=== PATIENT | male | born 1970 | race Caucasian/White ===

== ENCOUNTER 2017-01-13 14:59 | Emergency (ER) | payer MEDICAID, OTHER ==
[~2017-01-13] VITALS: Ht 157.5 cm; Wt 63.0 kg
[~2017-01-13 14:59] MED LIST: HYDR-3498 PO; IBUP-1542 PO; PRED20TA PO
[2017-01-13 15:34] VITALS: Ht 157.5 cm; Wt 63.0 kg
--- NOTE | 2017-01-13 17:38 | ERA ---
ER Documentation Chief Complaint Date/Time DATE: 01/13/17 TIME: 17:38 Chief Complaint Dizziness HPI . The patient is a 46-year-old male, presenting to the ER because of intermittent dizziness for the last 2 weeks. He does not have syncope. He complains of blurred vision intermittently for the last 2 weeks, weight loss, polydipsia, polyuria. Hew denies headache, neck pain, chest pain, abdominal pain , vomiting, dysuria, did diarrhea, constipation. He does not smoke nor drink Past medical/surgical history: None ROS All systems reviewed and are negative except as per history of present illness. Medications Home Meds Active Scripts Metformin* (Glucophage*) 500 Mg Tab, 500 MG PO DAILY, #30 TAB Prov:NEHEMIAS MARLOW MD 01/13/17 Prednisone (Prednisone) 20 Mg Tablet, 40 MG PO DAILY for 7 Days, TAB Prov:MOLLY LEI PA-C 12/15/14 Ibuprofen* (Ibuprofen*) 600 Mg Tablet, 600 MG PO Q6 for PAIN, #30 TAB Prov:MOLLY LEI PA-C 12/15/14 Hydrocodone Bit-Acetaminophen* (Heath*) 5-325 Mg Tab, 1 TAB PO Q4H Y for PAIN, # 20 TAB Prov:MOLLY LEI PA-C 12/15/14 Allergies Allergies: Coded Allergies: No Known Allergy (Unverified , 12/15/14) PMhx/Soc History of Surgery: No Anesthesia Reaction: No Hx Neurological Disorder: No Hx Respiratory Disorders: No Hx Cardiac Disorders: No Hx Psychiatric Problems: No Hx Miscellaneous Medical Probl: Yes (RA) Hx Alcohol Use: No Hx Substance Use: No Hx Tobacco Use: No Physical Exam Vitals Vital Signs Date Time Temp Pulse Resp B/P Pulse Ox O2 Delivery O2 Flow Rate FiO2 01/13/17 19:54 80 15 163/114 98 Room Air 01/13/17 15:34 97.7 68 18 103/64 97 Physical Exam Const: No acute distress.Dehydrated Eyes: Normal Conjunctiva. ENT: Normal External Ears, Nose and Mouth. Neck: Full range of motion. No meningismus. Resp: Clear to auscultation bilaterally. Cardio: Regular rate and rhythm. Abd: Soft, non distended, normal bowel sounds, non tender. Skin: No petechiae or rashes. Back: No midline or flank tenderness. Ext: No cyanosis, or edema. Neur: Awake and alert. No focal deficit Psych: Normal Mood and Affect. Result Diagram: 01/13/17 1800 01/13/17 1800 Results 24 hrs Laboratory Tests Test 01/13/17 17:41 01/13/17 17:49 01/13/17 18:00 01/13/17 19:36 Bedside Glucose 351mg/dL Blood Gas Specimen Source Blood arterial Arterial Blood Date Drawn 01/13/2017 6:00:48 PM Arterial Blood pH (Temp corrected) 7.433 Arterial Blood pCO2 (Temp correct) 37.0mmhg Arterial Blood pO2 (Temp corrected) 87.2mmHG Arterial Blood HCO3 24.2mmol/L Arterial Blood Base Excess 0.3mmol/L Arterial Blood Oxygen Saturation 96.3mmHG Gurjit Test ACCEPTAB Arterial Blood Gas Puncture Site Right Radial Arterial Blood Carboxyhemoglobin 0.2% Arterial Blood Methemoglobin 0.2% Blood Gas A-a O2 Differential 18.2mmHg Oxyhemoglobin Percent 95.9% Total Hemoglobin 15.7g/dl Blood Gas Temperature 37.0C Blood Gas Modality ROOM AIR FiO2 21.0% Blood Gas Notified Whom [place] Blood Gas Notified Time 01/13/2017 6:07:29 PM White Blood Count 5.410^3/ul Red Blood Count 5.2210^6/ul Hemoglobin 15.3g/dl Hematocrit 43.2% Mean Corpuscular Volume 82.8fl Mean Corpuscular Hemoglobin 29.3pg Mean Corpuscular Hemoglobin Concent 35.4g/dl Red Cell Distribution Width 11.9% Platelet Count 97464^3/UL Mean Platelet Volume 10.0fl Neutrophils % 51.3% Lymphocytes % 35.3% Monocytes % 11.5% Eosinophils % 1.3% Basophils % 0.4% Nucleated Red Blood Cells % 0.0/100WBC Neutrophils # 2.810^3/ul Lymphocytes # 1.910^3/ul Monocytes # 0.610^3/ul Eosinophils # 0.110^3/ul Basophils # 0.010^3/ul Nucleated Red Blood Cells # 0.010^3/ul Prothrombin Time 12.3Sec Prothrombin Time Ratio 1.0 INR International Normalized Ratio 0.91 Activated Partial Thromboplast Time 26.6Sec Sodium Level 138mmol/L Potassium Level 3.9mmol/L Chloride Level 102mmol/L Carbon Dioxide Level 27mmol/L Anion Gap 13 Blood Urea Nitrogen 12mg/dl Creatinine 0.74mg/dl Glucose Level 333mg/dl Lactic Acid Level 1.2mmol/L 1.2mmol/L Calcium Level 9.3mg/dl Phosphorus Level 3.8mg/dl Magnesium Level 1.8mg/dl Total Bilirubin 0.4mg/dl Direct Bilirubin 0.00mg/dl Indirect Bilirubin 0.4mg/dl Aspartate Amino Transf (AST/SGOT) 18IU/L Alanine Aminotransferase (ALT/SGPT) 37IU/L Alkaline Phosphatase 104IU/L Total Protein 7.4g/dl Albumin 4.3g/dl Globulin 3.10g/dl Albumin/Globulin Ratio 1.38 Test 01/13/17 19:37 Bedside Urine pH (LAB) 7.0 Bedside Urine Protein (LAB) Negative Bedside Urine Glucose (UA) 0.50% Bedside Urine Ketones (LAB) Trace Bedside Urine Blood Negative Bedside Urine Nitrite (LAB) Negative Bedside Urine Leukocyte Esterase (L Negative Current Medications Medications (Trade) Dose Ordered Sig/Shiv Route PRN Reason Start Time Stop Time Status Last Admin Dose Admin Sodium Chloride (NS) 1,950 ml @ 1,950 mls/hr BOLUS X1 ONCE IV 01/13/17 18:00 01/13/17 18:59 DC 01/13/17 18:00 Procedures/[place] [address] Radiology Main Line: [phone] DIAGNOSTIC IMAGING REPORT Patient: MONA ROBERTSON : 1970 Age: 46 Sex: M MR #: [id number] DOS: 01/13/17 1747 Ordering MD: NEHEMIAS MARLOW MD Location: E/R Room/Bed: PROCEDURE: Chest x-ray CLINICAL INDICATION: Hyperglycemia TECHNIQUE: Chest single view COMPARISON: None FINDINGS: The heart is normal in size. The pulmonary vessels are normal in caliber. The lungs are clear. The costophrenic angles are sharp. The visualized bony thorax is unremarkable. IMPRESSION: No acute cardiopulmonary disease. RPTAT: .Braulio Stock MD, Date Time Electronically viewed and signed by .Braulio Stock MD, on 01/13/2017 18:42 .W/ CC: NEHEMIAS MARLOW MD EKG: Read by emergency physician Rate/Rhythm: Normal Sinus Rhythm 62 beats/min QRS, ST, T-waves: No ST elevation, no T inversion block block , Incomplete right bundle branch block, left anterior fascicular block, LVH Impression: Abdominal EKG MEDICAL MAKING DECISION: The patient is a 46-year-old male, presenting with acute new onset of diabetes mellitus. He was treated with normosaline 30 mL/kg IV with good response, glucose was 225 after IV fluid. He is stable for outpatient follow-up The differential diagnoses considered include but are not limited to UTI, PNA, HHS, DKA Departure Diagnosis: Primary Impression: Diabetes mellitus Condition: Good Comments He was discharged with metformin I discussed the findings with the patient. I advised the patient to follow-up with the primary physician in about 1-2 days, sooner if needed and return if any concern. NEHEMIAS MARLOW MD Jan 13, 2017 17:38
[2017-01-13] MEDS ORDERED: SOD CHLORIDE 0.9% 1,950 ML IV ONE (18:00)
[2017-01-13 18:07] LABS: AADO2 Arterial 18.2 mmHg (7.0-24.0); Allen Test ACCEPTAB; Arterial Base Excess 0.3 mmol/L (-3.0-3); Arterial COHb 0.2 % (0.0-3.0); Arterial Fraction of Oxyhgb 95.9 % (93.0-99.0); Arterial HCO3 24.2 mmol/L (22.0-26.0); Arterial MetHb 0.2 % (0.0-1.5); Arterial Total Hemglobin 15.7 g/dl (12.0-18.0); MODE ROOM AIR
[2017-01-13 18:29] LABS: BASOPHILS % 0.4 % (0.0-2.0); EOSINOPHILS # 0.1 10^3/ul (0.0-0.5); EOSINOPHILS % 1.3 % (0.0-7.0); HEMATOCRIT 43.2 % (42.0-52.0); HEMOGLOBIN 15.3 g/dl (14.0-18.0); LYMPHOCYTES # 1.9 10^3/ul (0.8-2.9); LYMPHOCYTES % 35.3 % (15.0-51.0); MEAN CORPUSCULAR HEMOGLOBIN 29.3 pg (29.0-33.0); MEAN CORPUSCULAR HGB CONC 35.4 g/dl (32.0-37.0); MEAN CORPUSCULAR VOLUME 82.8 fl (82.0-101.0); MONOCYTE # 0.6 10^3/ul (0.3-0.9); MONOCYTES % 11.5 % (0.0-11.0); NEUTROPHIL # 2.8 10^3/ul (1.6-7.5); NEUTROPHILS % 51.3 % (39.0-77.0); PLATELET COUNT 180 10^3/UL (140-415); RED BLOOD COUNT 5.22 10^6/ul (4.70-6.10); RED CELL DISTRIBUTION WIDTH 11.9 % (11.5-14.5); WHITE BLOOD COUNT 5.4 10^3/ul (4.8-10.8)
--- NOTE | 2017-01-13 18:42 | RADRPT ---
PROCEDURE: Chest x-ray CLINICAL INDICATION: Hyperglycemia TECHNIQUE: Chest single view COMPARISON: None FINDINGS: The heart is normal in size. The pulmonary vessels are normal in caliber. The lungs are clear. Th e costophrenic angles are sharp. The visualized bony thorax is unremarkable. IMPRESSION: No acute cardiopulmonary disease. RPTAT: HH .Braulio Stock MD, Date Time Electronically viewed and signed by .Braulio Stock MD, MD on 01/13/2017 18:42 .W/
[2017-01-13 18:46] LABS: INR 0.91; PROTIME 12.3 Sec (12.2-14.2)
[2017-01-13 18:47] LABS: PARTIAL THROMBOPLASTIN TIME 26.6 Sec (25.0-35.0)
[2017-01-13 18:51] LABS: ALBUMIN 4.3 g/dl (3.3-4.9); ALBUMIN/GLOBULIN RATIO 1.38; BILIRUBIN,INDIRECT 0.4 mg/dl (0-1.1); BILIRUBIN,TOTAL 0.4 mg/dl (0.2-1.3); CALCIUM 9.3 mg/dl (8.4-10.2); CREATININE 0.74 mg/dl (0.61-1.24); MAGNESIUM 1.8 mg/dl (1.7-2.5); PHOSPHORUS 3.8 mg/dl (2.5-4.9); POTASSIUM 3.9 mmol/L (3.5-5.1); TOTAL PROTEIN 7.4 g/dl (6.1-8.1)
[2017-01-13 19:29] LABS: URINE BLOOD (Dip) POC Negative (NEGATIVE)
[2017-01-13] MEDS ORDERED: METF500T4 PO (20:33)
[2017-01-13 20:50] VITALS: BP 161/101; PULSE 74; RESP 16; TEMP 98.3
== END 2017-01-13 20:47 | disposition home or self-care (01) ==
LOC: E/R 14:59
DX: E11.9 Type 2 diabetes mellitus without complications (principal)
CPT/HCPCS: 36415; 36600; 71010; 80053; 81003; 82803; 82962; 83605; 83735; 84100; 85025; 85610; 85730; 87040; 93005; J7030; Z7502

== ENCOUNTER 2018-06-26 22:26 | Emergency (ER) | payer SELFPAY ==
[~2018-06-26] VITALS: Wt 66.5 kg
[~2018-06-26 22:26] MED LIST changes: +METF-849 PO
[2018-06-26] MEDS ORDERED: TETRACAINE 0.5% 4 ML OPH BOTH EYES ONE (23:00)
[2018-06-27] MEDS ORDERED: ERYT1OIN6 BOTH EYES (01:22)
[2018-06-27 01:51] VITALS: BP 160/76; PULSE 85; RESP 18
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
== END 2018-06-27 01:42 | disposition home or self-care (01) ==
LOC: E/R 22:26
DX: F10.920 Alcohol use, unspecified with intoxication, uncomplicated (principal); R07.9 Chest pain, unspecified; H10.213 Acute toxic conjunctivitis, bilateral; T59.891A Toxic effect of other specified gases, fumes and vapors, accidental (unintentional), initial encounter
CPT/HCPCS: 36415; 71045; 80048; 82962; 84484; 85025; 93005